=== PATIENT | male | born 1960 | race Caucasian/White ===

== ENCOUNTER 2018-05-11 09:23 | Emergency (ER) | payer MEDICAID ==
[~2018-05-11] VITALS: Ht 160 cm; Wt 77.1 kg
[2018-05-11 09:28] VITALS: Ht 160 cm; Wt 77.1 kg
[2018-05-11 09:57] LABS: BASOPHIL % 0.1 % (0-2); PLATELET COUNT 253 x10^3mcL (130-400)
[2018-05-11 09:58] LABS: RED CELL DISTRIBUTION WIDTH 11.4 % (11.5-14.5)
[2018-05-11 10:07] LABS: CALCIUM 8.9 mg/dL (8.5-10.1); CARBON DIOXIDE 23.4 mmol/L (21-32); CREATININE SERUM 1.3 mg/dL (0.7-1.3); POTASSIUM SERUM 3.8 mmol/L (3.5-5.1)
[2018-05-11 10:12] LABS: ALBUMIN 4.1 g/dL (3.4-5.0); BILIRUBIN TOTAL 0.6 mg/dL (0.20-1.00); TOTAL PROTEIN, SERUM 7.2 g/dL (6.4-8.2)
[2018-05-11 12:30] VITALS: BP 166/95
== END 2018-05-11 12:33 | disposition home or self-care (01) ==
LOC: ED 09:23
PROVIDERS: Emergency Medicine
DX: N13.2 Hydronephrosis with renal and ureteral calculous obstruction (principal); Z98.890 Other specified postprocedural states
CPT/HCPCS: J2270; J7030

== ENCOUNTER 2018-05-14 11:00 | Emergency (ER) | payer MEDICAID ==
[~2018-05-14] VITALS: Ht 160 cm; Wt 80.7 kg
[2018-05-14 11:05] VITALS: Ht 160 cm; Wt 80.7 kg
[2018-05-14 11:30] LABS: BASOPHIL % 0.3 % (0-2); PLATELET COUNT 220 x10^3mcL (130-400); RED CELL DISTRIBUTION WIDTH 12.3 % (11.5-14.5)
[2018-05-14 12:30] LABS: CALCIUM 7.9 mg/dL (8.5-10.1); CARBON DIOXIDE 28.1 mmol/L (21-32); CHLORIDE SERUM 101 mmol/L (98-107); GFR1 > 60 mL/min; GLUCOSE SERUM 111 mg/dL (74-106); POTASSIUM SERUM 3.5 mmol/L (3.5-5.1); SODIUM SERUM 135 mmol/L (136-145)
[2018-05-14 12:35] LABS: ALKALINE PHOSPHATASE 90 U/L (46-116); ALT/SGPT 98 U/L (16-63); AST/SGOT 38 U/L (15-37); BILIRUBIN TOTAL 1.2 mg/dL (0.20-1.00); TOTAL PROTEIN, SERUM 6.3 g/dL (6.4-8.2)
[2018-05-14 12:37] LABS: ALBUMIN 2.9 g/dL (3.4-5.0)
[2018-05-14 13:30] VITALS: BP 160/89
== END 2018-05-14 13:30 | disposition left against medical advice (07) ==
LOC: ED 11:00
PROVIDERS: Emergency Medicine
DX: N20.0 Calculus of kidney (principal); D72.829 Elevated white blood cell count, unspecified
CPT/HCPCS: J0696; J1885; J7030; Q0092

== ENCOUNTER 2018-05-23 18:09 | Inpatient (IN) | payer MEDICAID ==
[~2018-05-23] VITALS: Ht 160 cm; Wt 78.2 kg
[2018-05-23 19:13] LABS: RED CELL DISTRIBUTION WIDTH 11.8 % (11.5-14.5)
[2018-05-23 19:16] LABS: BASOPHIL % 0.3 % (0-2); PLATELET COUNT 304 x10^3mcL (130-400)
[2018-05-23 19:21] LABS: CALCIUM 9.4 mg/dL (8.5-10.1); CARBON DIOXIDE 27.5 mmol/L (21-32); CHLORIDE SERUM 99 mmol/L (98-107); CREATININE SERUM 0.9 mg/dL (0.7-1.3); GFR1 > 60 mL/min; GLUCOSE SERUM 111 mg/dL (74-106); SODIUM SERUM 135 mmol/L (136-145)
[2018-05-23 19:25] LABS: ALBUMIN 3.6 g/dL (3.4-5.0); ALKALINE PHOSPHATASE 112 U/L (46-116); ALT/SGPT 50 U/L (16-63); AST/SGOT 16 U/L (15-37); BILIRUBIN TOTAL 0.5 mg/dL (0.20-1.00); LIPASE 139 IU/L (73-393); TOTAL PROTEIN, SERUM 7.2 g/dL (6.4-8.2)
[2018-05-23 20:39] LABS: microscopic required? NO
[2018-05-23 20:48] LABS: urine erythrocyte NEGATIVE (NEGATIVE)
[2018-05-23 21:33] LABS: MAGNESIUM 2.3 mg/dL (1.8-2.4); PHOSPHOROUS 2.3 mg/dL (2.5-4.9)
[2018-05-23 22:01] VITALS: BP 136/92
[2018-05-23 22:10] VITALS: Ht 160 cm; Wt 78.2 kg
[2018-05-24 05:19] VITALS: BP 118/69
[2018-05-24 05:54] LABS: BASOPHIL % 0.4 % (0-2); PLATELET COUNT 288 x10^3mcL (130-400); RED CELL DISTRIBUTION WIDTH 12.3 % (11.5-14.5)
[2018-05-24 06:33] LABS: CALCIUM 8.7 mg/dL (8.5-10.1); CARBON DIOXIDE 30.4 mmol/L (21-32); CHLORIDE SERUM 103 mmol/L (98-107); CREATININE SERUM 1.1 mg/dL (0.7-1.3); GFR1 > 60 mL/min; GLUCOSE SERUM 103 mg/dL (74-106); MAGNESIUM 2.4 mg/dL (1.8-2.4); POTASSIUM SERUM 4.4 mmol/L (3.5-5.1); SODIUM SERUM 138 mmol/L (136-145)
[2018-05-24 08:58] VITALS: BP 127/75
[2018-05-24 16:35] VITALS: BP 140/75
[2018-05-24 20:59] VITALS: BP 132/72
[2018-05-25 05:54] VITALS: BP 126/81
[2018-05-25 06:23] LABS: BASOPHIL % 0.5 % (0-2); PLATELET COUNT 268 x10^3mcL (130-400); RED CELL DISTRIBUTION WIDTH 12.2 % (11.5-14.5)
[2018-05-25 06:26] LABS: CALCIUM 8.3 mg/dL (8.5-10.1); CARBON DIOXIDE 28.7 mmol/L (21-32); CHLORIDE SERUM 104 mmol/L (98-107); CREATININE SERUM 0.9 mg/dL (0.7-1.3); GFR1 > 60 mL/min; GLUCOSE SERUM 101 mg/dL (74-106); MAGNESIUM 2.2 mg/dL (1.8-2.4); PHOSPHOROUS 3.5 mg/dL (2.5-4.9); POTASSIUM SERUM 4.4 mmol/L (3.5-5.1); SODIUM SERUM 140 mmol/L (136-145)
[2018-05-25 09:35] VITALS: BP 142/95
[2018-05-25 16:05] VITALS: BP 150/87
[2018-05-25 20:38] VITALS: BP 152/84
[2018-05-26 05:40] VITALS: BP 157/83
[2018-05-26 06:50] LABS: BASOPHIL % 0.4 % (0-2); PLATELET COUNT 294 x10^3mcL (130-400)
[2018-05-26 06:58] LABS: RED CELL DISTRIBUTION WIDTH 11.1 % (11.5-14.5)
[2018-05-26 07:04] LABS: CALCIUM 8.6 mg/dL (8.5-10.1); CARBON DIOXIDE 28.5 mmol/L (21-32); CHLORIDE SERUM 105 mmol/L (98-107); CREATININE SERUM 0.8 mg/dL (0.7-1.3); GFR1 > 60 mL/min; GLUCOSE SERUM 92 mg/dL (74-106); MAGNESIUM 2.2 mg/dL (1.8-2.4); PHOSPHOROUS 3.5 mg/dL (2.5-4.9); POTASSIUM SERUM 4.1 mmol/L (3.5-5.1); SODIUM SERUM 139 mmol/L (136-145)
[2018-05-26] MEDS ORDERED: FLO4 PO ×2 (07:34→08:03)
[2018-05-26] MEDS ORDERED: ULTRAM50 MG PO (07:34)
[2018-05-26] MEDS ORDERED: CEPHALEXIN500 M1 PO (07:35)
[2018-05-26 08:04] VITALS: BP 157/83
== END 2018-05-26 09:35 | disposition home or self-care (01) | DRG 720 ==
LOC: ED 18:09 → MU 20:43
PROVIDERS: Emergency Medicine; Internal Medicine
DX: A41.9 Sepsis, unspecified organism (principal); E83.39 Other disorders of phosphorus metabolism; N13.2 Hydronephrosis with renal and ureteral calculous obstruction; E87.1 Hypo-osmolality and hyponatremia; N12 Tubulo-interstitial nephritis, not specified as acute or chronic; Z68.31 Body mass index [BMI] 31.0-31.9, adult; Z87.442 Personal history of urinary calculi
CPT/HCPCS: J0696; J1885; J2270; J2405; J7030; Q0092